=== PATIENT | female | born 1990 | race African-American/Black ===

== ENCOUNTER 2016-06-16 08:24 | Emergency (ER) ==
[2016-06-16 08:31] VITALS: BP 115/66
--- NOTE | 2016-06-16 09:15 | PROVIDER DOCUMENTATION ---
HPI-Musculoskeletal Pain/Inj - GENERAL Chief Complaint: Extremity Pain Stated Complaint: LAC TO LFT HAND Time Seen by Provider: 06/16/16 09:09 Source: patient - HX OF PRESENT ILLNESS-MUSKULOSKELTAL Nature of Presenting Problem: pt is a 25 y/o F that presents to the ER with laceration to left hand between thumb and index finger. 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 Quality of Pain: reports: burning Severity in ED: mild Onset/Duration: abrupt, just prior to arrival Timing: still present, constant Modifying Factors: worse with: movement Any recent injury?: No Locality of Occurance: Home Similar Symptoms Previously?: No Recently seen or treated by another doctor?: No - UPPER EXTREMITY PAIN/INJURY Extremities Pain Location: hand: right Context / Method of Injury: reports: incised Associated Symptoms: reports: denies symptoms Review of Systems - Adult - REVIEW OF SYSTEMS - ADULT Constitutional: reports: no symptoms reported Eyes: reports: no symptoms reported Ears, Nose, Mouth & Throat: reports: no symptoms reported Cardiovascular: reports: no symptoms reported Respiratory: reports: no symptoms reported Gastrointestinal: reports: no symptoms reported Genitourinary: reports: no symptoms reported Musculoskeletal: reports: see HPI Integumentary: reports: see HPI Neurological: reports: no symptoms reported Psychiatric: reports: no symptoms reported Endocrine: reports: no symptoms reported Hematologic/Lymphatic: reports: no symptoms reported Allergic/Immunologic: reports: no symptoms reported All Other Systems: Reviewed and Negative Past History - Adult - PAST MEDICAL HISTORY-ADULT Review of Records: reports: Old Records Reviewed, Nursing Assessment Review, Medications Reviewed Neurological: reports: headaches/migraines - PRIOR SURGERIES/PROCEDURES Surgical/Procedure History: reports: tonsillectomy, other (right breast cyst) - IMMUNIZATION STATUS Childhood Immunizations: See Nurse Assessment Flu Vaccine: See Nurse Assessment - SOCIAL HISTORY Smoking: cigarettes, less than 1 pack/day Living Situation: family Physical Exam-Injury Related - Physical Exam-Injury Related Initial Vital Signs Reviewed: Yes General Appearance: alert, no apparent distress Eyes: PERRL/EOMI, pink conjunctivae Head, Ears, Nose, Mouth & Throat: normocephalic/atraumatic, moist mucous membranes, normal ENT inspection Neck: full range of motion, normal inspection Respiratory: lungs clear, normal breath sounds, no respiratory distress, no accessory muscle use Cardiovascular: regular rate, rhythm, no edema, no murmur Abdominal Exam: normal bowel sounds, non tender, soft Back Exam: normal inspection, no vertebral tenderness Extremity: normal range of motion, no calf tenderness, normal capillary refill, pelvis stable Integumentary: warm/dry, laceration (1cm superficial to left hand between thumb and index finger) Neurologic: grossly normal, no motor/sensory deficits Psych/Mental Status: normal mood/affect, normal thought content, normal thought process, oriented x 3 Progress - PLAN OF CARE/RESULTS Progress/Plan/Lab Results: Vital Signs Temp Pulse Resp BP Pulse Ox 06/16/16 08:29 97.5 F L 69 16 115/66 100 No Known Allergies Allergy (Verified 06/16/16 08:44) No Home Medications 06/16/16 pt will be d/c home f/u with pcp Procedures - LACERATION/WOUND REPAIR/FB Left Hand Wound Length: 1cm Wound's Depth, Shape: superficial Wound Explored/Foreign Body: clean, no foreign body found Prepped with: Hibiclens Wound Repaired with: Dermabond Sterile Dressing Applied?: No Splint Applied?: No Sling Applied?: No Post Procedure Neurovascular Exam: Intact Departure - Departure Time of Disposition Order: 09:14 DIAGNOSIS: Superficial laceration of hand Qualifiers: Encounter type: initial encounter Laterality: left Qualified Code(s): S61.412A - Laceration without foreign body of left hand, initial encounter Disposition: HOME 01 Certified Medical Emergency: Emergent Condition: Stable Additional Instructions: Keep wound clean and dry ED Follow Up Instructions: You have been treated by a care provider in the Emergency Department. These instructions are being provided to you so you can have an understanding of how to care for yourself upon discharge. Upon discharge from the Emergency Department, you are responsible for making arrangements for follow-up care by a physician of your choice. Take all prescribed medications as directed. Return to the Emergency Department immediately for any new or worsening symptoms. You may call the Physician Referral phone number at [phone] to obtain a list of Physicians who are taking new patients. Instructions: Tissue Adhesive Wound Care, [id number] Attestation - Scribe Verification/Attestation Scribe:: Amarjit Flores Acting as Scribe for:: Atif Russell Scribe documention review:: This chart was documented by a scribe and accurately reflects the service the provider performed and the decisions made by the provider. Physician Attestation - Physician Attestation I, the provider, attest to the following statement:: Atif Russell Physician documentation Attestation:: This documentation recorded by the scribe accurately reflects the service I personally performed and the decisions made by me.
== END 2016-06-16 09:24 | disposition home or self-care (01) ==
LOC: ED 08:24
DX: S61.412A Laceration without foreign body of left hand, initial encounter (principal); M79.642 Pain in left hand; F17.210 Nicotine dependence, cigarettes, uncomplicated; W45.8XXA Other foreign body or object entering through skin, initial encounter
CPT/HCPCS: 99281